=== PATIENT | male | born 1940 | race Caucasian/White ===

== ENCOUNTER 2017-05-02 16:34 | Emergency (ER) | payer MEDICARE ==
--- NOTE | 2017-05-02 17:39 | Emergency Department Report ---
ED Male HPI - General Chief complaint: Urogenital-Male Stated complaint: BLOOD IN URINE Time Seen by Provider: 05/02/17 17:35 Source: EMS Mode of arrival: Stretcher Limitations: No Limitations - History of Present Illness Initial comments: Patient is a 77-year-old male past medical history of atrial fibrillation and BPH. Patient presents with hematuria. Patient's symptoms have been going on for 1 day he has some dysuria when he urinates. And he notices that his urine is blood tinged and he clears towards the end of his stream. Patient states that the pain is a 4 out of 10 urinate makes it worse not urinating makes it better. The pain radiates to his belly. Patient denies any nausea or vomiting. Patient denies any fever. Patient has been on Xalerto for his A. fib for the last 6 years. Patient states that he's never had these symptoms before. - Related Data Home Medications Medication Instructions Recorded Confirmed Last Taken Cetirizine HCl [Allergy] 1.5 tab PO DAILY 05/02/17 05/02/17 Unknown Dronedarone HCl [Multaq] 1 tab PO BID 05/02/17 05/02/17 Unknown Esomeprazole Magnesium 40 mg PO QHS 05/02/17 05/02/17 Unknown Famotidine [Pepcid] 1 tab PO BID 05/02/17 05/02/17 Unknown Gabapentin [Neurontin] 1 cap PO QID 05/02/17 05/02/17 Unknown HYDROcodone/APAP 7.5-325 1 tab PO QID 05/02/17 05/02/17 Unknown Montelukast [Singulair] 1 tab PO QHS 05/02/17 05/02/17 Unknown Primidone [Mysoline] 2 tab PO BID 05/02/17 05/02/17 Unknown Rivaroxaban [Xarelto] 1 tab PO DAILY 05/02/17 05/02/17 Unknown Rosuvastatin (Nf) [Crestor] 1 tab PO DAILY 05/02/17 05/02/17 Unknown Solifenacin Succinate [Vesicare] 1 tab PO DAILY 05/02/17 05/02/17 Unknown Venlafaxine 150 mg PO DAILY 05/02/17 05/02/17 Unknown amLODIPine/VALSARTAN 1 tab PO DAILY 05/02/17 05/02/17 Unknown [Amlodipine-Valsartan 5-320 mg] Allergies Allergy/AdvReac Type Severity Reaction Status Date / Time duloxetine HCl Allergy Unknown Verified 05/02/17 17:17 [From [facility]] ED Review of Systems ROS: Stated complaint: BLOOD IN URINE Other details as noted in HPI Constitutional: denies: chills, fever Eyes: denies: eye pain, eye discharge, vision change ENT: denies: ear pain, throat pain Respiratory: denies: cough, shortness of breath, wheezing Cardiovascular: denies: chest pain, palpitations Endocrine: no symptoms reported Gastrointestinal: abdominal pain. denies: nausea, diarrhea Genitourinary: dysuria, hematuria Musculoskeletal: denies: back pain, joint swelling, arthralgia Skin: denies: rash, lesions Neurological: denies: headache, weakness, paresthesias Psychiatric: denies: anxiety, depression Hematological/Lymphatic: denies: easy bleeding, easy bruising ED Past Medical Hx - Past Medical History Hx Hypertension: Yes Hx Asthma: Yes Hx COPD: Yes Additional medical history: PTSD, BPH, A Fib - Social History Smoking Status: Never Smoker Substance Use Type: None - Medications Home Medications: Home Medications Medication Instructions Recorded Confirmed Last Taken Type Cetirizine HCl [Allergy] 1.5 tab PO DAILY 05/02/17 05/02/17 Unknown History Dronedarone HCl [Multaq] 1 tab PO BID 05/02/17 05/02/17 Unknown History Esomeprazole Magnesium 40 mg PO QHS 05/02/17 05/02/17 Unknown History Famotidine [Pepcid] 1 tab PO BID 05/02/17 05/02/17 Unknown History Gabapentin [Neurontin] 1 cap PO QID 05/02/17 05/02/17 Unknown History HYDROcodone/APAP 7.5-325 1 tab PO QID 05/02/17 05/02/17 Unknown History Montelukast [Singulair] 1 tab PO QHS 05/02/17 05/02/17 Unknown History Primidone [Mysoline] 2 tab PO BID 05/02/17 05/02/17 Unknown History Rivaroxaban [Xarelto] 1 tab PO DAILY 05/02/17 05/02/17 Unknown History Rosuvastatin (Nf) [Crestor] 1 tab PO DAILY 05/02/17 05/02/17 Unknown History Solifenacin Succinate [Vesicare] 1 tab PO DAILY 05/02/17 05/02/17 Unknown History Venlafaxine 150 mg PO DAILY 05/02/17 05/02/17 Unknown History amLODIPine/VALSARTAN 1 tab PO DAILY 05/02/17 05/02/17 Unknown History [Amlodipine-Valsartan 5-320 mg] ED Physical Exam - General Limitations: No Limitations General appearance: alert, in no apparent distress - Head Head exam: Present: atraumatic, normocephalic - Eye Eye exam: Present: normal appearance - ENT ENT exam: Present: mucous membranes moist - Neck Neck exam: Present: normal inspection - Respiratory Respiratory exam: Present: normal lung sounds bilaterally. Absent: respiratory distress - Cardiovascular Cardiovascular Exam: Present: regular rate, normal rhythm. Absent: systolic murmur, diastolic murmur, rubs, gallop - GI/Abdominal GI/Abdominal exam: Present: soft, normal bowel sounds - Rectal Rectal exam: Present: deferred - Extremities Exam Extremities exam: Present: normal inspection - Back Exam Back exam: Present: normal inspection - Neurological Exam Neurological exam: Present: alert, oriented X3 - Psychiatric Psychiatric exam: Present: normal affect, normal mood - Skin Skin exam: Present: warm, dry, intact, normal color. Absent: rash ED Course Vital Signs 05/02/17 05/02/17 17:17 18:41 Temperature 98.5 F Pulse Rate 60 80 Respiratory 14 16 Rate Blood Pressure 157/71 Blood Pressure 135/81 [Left] O2 Sat by Pulse 100 100 Oximetry - Reevaluation(s) Reevaluation #1: 05/02/17 20:27 Patient states that urine is a lot more clear. Discussed CT findings with patient and he requests to leave because he has an appointment with his urologist tomorrow. He has no other medical questions at this. ED Medical Decision Making - Lab Data Result diagrams: 05/02/17 17:59 05/02/17 17:59 Laboratory Results - last 24 hr 05/02/17 05/02/17 05/02/17 17:26 17:59 17:59 WBC 4.7 RBC 4.09 Hgb 13.1 Hct 37.9 MCV 93 MCH 32 MCHC 34 RDW 14.6 Plt Count 143 Lymph % (Auto) 15.4 [place] % (Auto) 14.7 H Eos % (Auto) 4.4 H Baso % (Auto) 0.8 Lymph # 0.7 L [place] # 0.7 Eos # 0.2 Baso # 0.0 Seg Neutrophils % 64.7 Seg Neutrophils # 3.0 PT INR APTT Sodium 141 Potassium 4.5 Chloride 104.3 Carbon Dioxide 23 Anion Gap 18 BUN 20 Creatinine 1.3 Estimated GFR 53 BUN/Creatinine Ratio 15.38 Glucose 82 Calcium 8.8 Urine Color Red Urine Turbidity Slightly-cloudy Urine pH 5.0 Ur Specific [place] 1.020 Urine Protein 100 mg/dl Urine Glucose (UA) Neg Urine Ketones Tr Urine Blood Lg Urine Nitrite Neg Urine Bilirubin Neg Urine Urobilinogen < 2.0 Ur Leukocyte Esterase Neg Urine WBC (Auto) 97.0 H Urine RBC (Auto) > 182.0 05/02/17 17:59 WBC RBC Hgb Hct MCV MCH MCHC RDW Plt Count Lymph % (Auto) [place] % (Auto) Eos % (Auto) Baso % (Auto) Lymph # [place] # Eos # Baso # Seg Neutrophils % Seg Neutrophils # PT 20.8 H INR 1.69 H APTT 44.1 H Sodium Potassium Chloride Carbon Dioxide Anion Gap BUN Creatinine Estimated GFR BUN/Creatinine Ratio Glucose Calcium Urine Color Urine Turbidity Urine pH Ur Specific [place] Urine Protein Urine Glucose (UA) Urine Ketones Urine Blood Urine Nitrite Urine Bilirubin Urine Urobilinogen Ur Leukocyte Esterase Urine WBC (Auto) Urine RBC (Auto) - Radiology Data Radiology results: report reviewed, image reviewed CT abdomen and pelvis with contrast: No acute abdominal process. Irregular prostate and minor fecal impaction - Medical Decision Making Chief medical diagnosis: Hematuria secondary to Xalerto Differential medical diagnosis: Urinary tract infection, bladder injury We'll get CBC, INR, PTT, CT abdomen urinalysis Given patient's clinical symptoms hematuria is most likely due to Xalerto use patient's feeling of dysuria is most likely due to micro-clots. Patient's urine is clearing and he states that he has an appointment with his urologist tomorrow. CT scan shows no acute findings in the belly. Patient requires no medical intervention. We'll send patient home to follow-up with his urologist tomorrow. Gave patient return precautions to come back to the ER. Additional verbal discharge instructions were given. Critical care attestation.: If time is entered above; I have spent that time in minutes in the direct care of this critically ill patient, excluding procedure time. ED Disposition Clinical Impression: Hematuria Qualifiers: Hematuria type: gross Qualified Code(s): R31.0 - Gross hematuria Disposition: TO HOME OR SELFCARE Is pt being admited?: No Does the pt Need Aspirin: No Condition: Stable Instructions: Acute Hematuria (ED) Additional Instructions: Please follow-up with your urologist. Referrals: PRIMARY CARE [Primary Care Provider] - 3-5 Days Time of Disposition: 20:18
[2017-05-02 18:14] LABS: Basophils % (Auto) 0.8 % (0.0-1.8); Eosinophils % (Auto) 4.4 % (0.0-4.3); Hematocrit 37.9 % (35.5-45.6); Hemoglobin 13.1 gm/dl (11.8-15.2); Mean Corpuscular HGB Conc 34 % (32-34); Mean Corpuscular Hemoglobin 32 pg (28-32); Mean Corpuscular Volume 93 fl (84-94); Platelet Count 143 K/mm3 (140-440); Red Blood Count 4.09 M/mm3 (3.65-5.03); Red Cell Distribution Width 14.6 % (13.2-15.2); White Blood Count 4.7 K/mm3 (4.5-11.0)
[2017-05-02] MEDS ORDERED: NACL ONE (18:24)
[2017-05-02 18:25] LABS: INR 1.69 (0.87-1.13)
[2017-05-02 18:26] LABS: Partial Thromboplastin Time 44.1 Sec. (24.2-36.6)
[2017-05-02 18:30] LABS: BUN/Creatinine Ratio 15.38; Calcium 8.8 mg/dL (8.4-10.2); Chloride 104.3 mmol/L (98-107); Potassium 4.5 mmol/L (3.6-5.0)
[2017-05-02 18:57] LABS: Bilirubin,Urine NEG (Negative); Blood,Urine LG (Negative); Ketones,Urine TR mg/dL (Negative); Leukocyte Esterase,Urine NEG (Negative); Nitrite,Urine NEG (Negative); Urobilinogen,Urine < 2.0 mg/dL (<2.0)
[2017-05-02 18:59] LABS: RBC,Urine > 182.0 /HPF (0.0-6.0)
[2017-05-02 19:01] VITALS: BP 135/81
--- NOTE | 2017-05-02 19:53 | Cat Scan Report ---
FINAL REPORT PROCEDURE: CT ABDOMEN PELVIS W CON TECHNIQUE: Computerized axial tomography of the abdomen and pelvis was performed after the IV injection of iodinated nonionic contrast. HISTORY: hematuria COMPARISON: No prior studies are available for comparison. FINDINGS: Mild hypoventilatory changes are seen in the lungs. Spleen is normal in size. Multiple small hypodensities are seen in the liver. These lesions persist on delayed imaging and are likely benign cysts. Gallbladder is not well-distended without obvious gallbladder abnormality. There is mild prominence of the common hepatic duct which measures 9 millimeters diameter. However, the common bile duct measures 6.5 millimeters which is within normal limits. No pancreatic abnormality is seen. The adrenal glands and abdominal aorta are normal in size. Benign cysts are seen in the kidneys with the largest cyst seen in the superior pole of the left kidney measuring 4 cm in diameter. 6 x 2 millimeter stone is seen in the lower pole of the left kidney. There is a small midline upper anterior abdominal wall hernia containing fat. There is likely mild fecal impaction in the rectum and distal sigmoid colon. Likely mild diffuse constipation is seen elsewhere in the colon. Normal appendix is seen. No evidence of bowel obstruction is seen. Bladder appears normal but the prostate gland appears mildly prominent measuring 5.0 X 4.3 x 5.0 cm. 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 It appears thrombosed. Postoperative changes are seen in the lumbar spine. Mild thoracolumbar scoliosis is seen. IMPRESSION: Prostate gland appears mildly prominent with a slightly irregular border. No bladder wall thickening is seen. Cysts are seen in the kidneys. 6 x 2 millimeter stone is seen in the lower pole of the left kidney. There is likely mild fecal impaction in the rectosigmoid colon with mild diffuse constipation.
== END 2017-05-02 20:43 | disposition home or self-care (01) ==
LOC: ED 16:34
DX: R31.9 Hematuria, unspecified (principal); R30.0 Dysuria; I10 Essential (primary) hypertension; J44.9 Chronic obstructive pulmonary disease, unspecified; Z88.8 Allergy status to other drugs, medicaments and biological substances
CPT/HCPCS: 36415; 74177; 80048; 81001; 85025; 85610; 85730; 99284; Q9967